=== PATIENT | female | born 1970 | race Caucasian/White ===

== ENCOUNTER 2017-01-05 18:52 | Emergency (ER) | payer OTHER ==
[~2017-01-05] VITALS: Ht 167.6 cm; Wt 127.1 kg
[2017-01-05 19:14] VITALS: BP 145/100; PULSE 94; RESP 24; TEMP 98.4; O2SAT 95
[2017-01-05] MEDS ORDERED: IBUP800T23 PO (19:38)
[2017-01-05] MEDS ORDERED: HYDR-3516 PO (19:38)
--- NOTE | 2017-01-05 19:44 | PD ---
HPI Chief Complaint: Musculoskeletal Complaint Time Seen by Provider: 19:36 Travel History International Travel<30 days: No Contact w/Intl Traveler<30days: No Traveled to known affect area: No History of Present Illness HPI 46-year-old female presents to the emergency department by private transportation the care of her spouse for evaluation of severe low back pain radiating into the left lower extremity. Patient reports that she has established history of lumbar disc disease with bulging disc and a herniated disc reportedly at L4 5. Patient states she is under the care of pain management doctor and a back doctor in [place] where she is visiting from. Patient states symptoms have exacerbated since last week. Patient was seen in an emergency department on 1 week ago for increased back pain and left lower extremity pain. Patient was evaluated with an ultrasound which was negative for DVT and was informed that her symptoms were related to her lumbar disc disease. Patient was reportedly also seen by her pain management provider on and received an injection and she reports that the pain management doctor assured her symptoms over the 72 hours. Patient states her symptoms were not improved in 72 hours and that her pain management doctor like her. Patient did not contact her pain management doctor to inform the physician that her symptoms were persistent. Patient did have her contact her back doctor who told her that he would see her in follow-up this upcoming Sunday. The patient decided to travel from [place] to [place] in the interim and has noticed increasing pain in her back. Patient denies any bladder or bowel dysfunction. Patient denies any lower extremity weakness or new numbness has had numbness in her toes. Patient states that she has been prescribed hydrocodone but has provided no symptom relief and has been taking ibuprofen 802 1000 mg as often as every 3 hours. Patient's past history is significant for lumbar disc disease , varicosities, gastric bypass, appendectomy, and clinical obesity. Patient does not report any fever chills cough congestion chest pain shortness of breath pleuritic chest pain vomiting diarrhea dysuria frequency urgency urinary retention bladder or bowel dysfunction or bowel incontinence. No report of saddle anesthesia. Patient also reports that 1 week ago she also had a fall but did not report this to the emergency department at that time and also has noticed a bruise where she's been squeezing her lower abdomen very hard with her hand because of her related pain. [facility] Past Medical History Narrative Medical Lumbar disc disease clinical obesity varicose veins gastric bypass appendectomy ; nursing notes reviewed ?: Not Social History Tobacco Use: No Allergies-Medications (Allergen,Severity, Reaction): Coded Allergies: Penicillins (Verified Allergy, Unknown, 01/05/17) Reported Meds & Prescriptions Reported Meds & Active Scripts Active Medrol Dosepak (Methylprednisolone) 4 Mg Dspk 4 Mg PO DIRECTED Per Pharmacist direction Robaxin (Methocarbamol) 750 Mg Tab 750 Mg PO Q6HR Reported Hydrocodone-Acetaminophen 5-325 mg Tab 1 Tab PO Q4H PRN Ibuprofen 800 Mg Tab 800 Mg PO Q6HR PRN Narrative Medication Ibuprofen hydrocodone Review of Systems Except as stated in HPI: all other systems reviewed are Neg General / Constitutional: No: Fever, Chills HENT: No: Congestion Cardiovascular: No: Chest Pain or Discomfort Respiratory: No: Shortness of Breath Gastrointestinal: Positive: Nausea, Abdominal Pain Genitourinary: No: Dysuria Musculoskeletal: Positive: Pain (back and LLE) Skin: No Rash Neurologic: No: Weakness, Paresthesia Psychiatric: No: Anxiety Endocrine: No: Heat Intolerance, Cold Intolerance Hematologic/Lymphatic: No: Easy Bruising Physical Exam Narrative GENERAL: Well-developed well-nourished clinically obese female crying and no respiratory distress; GCS 15; T: 98.4; HR;: 94; RR:24; BP: 145/100; RA O2sat: 95 % SKIN: Warm and dry. Various aged ecchymoses over the abdominal wall LLQ round, subacute, proximal lateral left lower extremity acute to subacute, scattered, and lateral proximal L lower lateral leg subacute, round. HEAD: Normocephalic. EYES: No scleral icterus. No injection or drainage. NECK: Supple, trachea midline. No JVD or lymphadenopathy. CARDIOVASCULAR: Regular rate and rhythm without murmurs, gallops, or rubs. RESPIRATORY: Breath sounds equal bilaterally. No accessory muscle use. GASTROINTESTINAL: Abdomen soft, non-tender, nondistended. MUSCULOSKELETAL: No cyanosis, or edema. BACK: Tender to palpation along the lower lumbar spine causing the patient to jerk forward repetitively each time I approach touching the lower back area without obvious deformity. No cervical or thoracic spine tenderness. Negative right lower extremity SLR, patient will not attempt left lower extremity straight-leg raising. Sensory exam grossly intact. No CVA tenderness. Data Data Last Documented VS Vital Signs Date Time Temp Pulse Resp B/P (MAP) Pulse Ox O2 Delivery O2 Flow Rate FiO2 01/05/17 21:44 60 16 126/61 (82) 97 01/05/17 20:20 98.8 Room Air Orders Orders Complete Blood Count With Diff (01/05/17 19:34) Comprehensive Metabolic Panel (01/05/17 19:34) Lipase (01/05/17 19:34) Urinalysis - C+S If Indicated (01/05/17 19:34) Iv Access Insert/Monitor (01/05/17 19:34) Ecg Monitoring (01/05/17 19:34) Oximetry (01/05/17 19:34) Ondansetron Inj (Zofran Inj) (01/05/17 19:45) Sodium Chloride 0.9% Flush (Ns Flush) (01/05/17 19:45) Hydromorphone Pf Inj (Dilaudid Pf Inj) (01/05/17 19:45) Ketorolac Inj (Toradol Inj) (01/05/17 21:30) Dexamethasone Inj (Decadron Inj) (01/05/17 21:30) Ed Urine Pregnancytest Poc (01/05/17 21:34) Ed Discharge Order (01/05/17 21:46) Labs Laboratory Tests Test 01/05/17 19:47 01/05/17 21:00 White Blood Count 6.6 TH/MM3 Red Blood Count 4.81 MIL/MM3 Hemoglobin 12.7 GM/DL Hematocrit 38.6 % Mean Corpuscular Volume 80.2 FL Mean Corpuscular Hemoglobin 26.3 PG Mean Corpuscular Hemoglobin Concent 32.8 % Red Cell Distribution Width 14.4 % Platelet Count 236 TH/MM3 Mean Platelet Volume 8.5 FL Neutrophils (%) (Auto) 55.2 % Lymphocytes (%) (Auto) 29.0 % Monocytes (%) (Auto) 11.7 % Eosinophils (%) (Auto) 3.2 % Basophils (%) (Auto) 0.9 % Neutrophils # (Auto) 3.6 TH/MM3 Lymphocytes # (Auto) 1.9 TH/MM3 Monocytes # (Auto) 0.8 TH/MM3 Eosinophils # (Auto) 0.2 TH/MM3 Basophils # (Auto) 0.1 TH/MM3 CBC Comment DIFF FINAL Differential Comment Blood Urea Nitrogen 12 MG/DL Creatinine 0.82 MG/DL Random Glucose 100 MG/DL Total Protein 7.4 GM/DL Albumin 3.7 GM/DL Calcium Level 8.9 MG/DL Alkaline Phosphatase 71 U/L Aspartate Amino Transf (AST/SGOT) 15 U/L Alanine Aminotransferase (ALT/SGPT) 19 U/L Total Bilirubin 0.3 MG/DL Sodium Level 143 MEQ/L Potassium Level 3.9 MEQ/L Chloride Level 110 MEQ/L Carbon Dioxide Level 25.9 MEQ/L Anion Gap 7 MEQ/L Estimat Glomerular Filtration Rate 75 ML/MIN Lipase 112 U/L Urine Collection Type VOIDED Urine Color YELLOW Urine Turbidity CLEAR Urine pH 5.5 Urine Specific [place] 1.015 Urine Protein NEG mg/dL Urine Glucose (UA) NEG mg/dL Urine Ketones TRACE mg/dL Urine Occult Blood NEG Urine Nitrite NEG Urine Bilirubin NEG Urine Leukocyte Esterase NEG Urine WBC 3-5 /hpf Urine Squamous Epithelial Cells 0-3 /hpf Urine Transitional Epithelial Cells 0-2 /hpf Urine White Blood Cell Casts 0-2 /lpf Urine Mucus FEW /lpf Microscopic Urinalysis Comment CULT NOT INDICATED MDM Medical Decision Making Medical Screen Exam Complete: Yes Emergency Medical Condition: Yes Medical Record Reviewed: Yes Interpretation(s) CBC & BMP Diagram 01/05/17 19:47 Total Protein 7.4, Albumin 3.7, Calcium Level 8.9, Alkaline Phosphatase 71, Aspartate Amino Transf (AST/SGOT) 15, Alanine Aminotransferase (ALT/SGPT) 19, Total Bilirubin 0.3 Vital Signs Date Time Temp Pulse Resp B/P (MAP) Pulse Ox O2 Delivery O2 Flow Rate FiO2 01/05/17 20:20 98.8 60 18 126/62 (83) 97 Room Air 01/05/17 20:20 18 01/05/17 20:00 60 18 129/66 (87) 97 Room Air 01/05/17 19:58 95 Room Air 01/05/17 19:14 98.4 94 24 145/100 (115) 95 UA: wnl Differential Diagnosis Exacerbation chronic back pain, HNP, cauda equina, abdominal pain, colitis, diverticulitis, abdominal wall contusion, UTI, renal colic Narrative Course Patient placed on exam stretcher IV access obtained specimens collected and sent for resulting and administer one dose of Zofran 4 mg IV and Dilaudid 1 mg IV for pain management. It's 9:25 PM lab values and found to be in normal range pain has decreased from 10 over 10 in intensity 5/10 intensity but patient still cries when she is ambulatory therefore administered 1 dose of Toradol 30 mg IV and 1 dose of Decadron 8 mg IV. Patient is stable for outpatient management; patient is prescribed Medrol Dosepak and Robaxin muscle relaxant. Patient is encouraged to follow-up with her primary care provider and pain management provider Diagnosis Primary Impression: Acute exacerbation of chronic low back pain Referrals: Pain Management call for appointment Primary Care Physician call for appointment Patient Instructions: Narcotic given in the ED, General Instructions Additional Instructions: Increase fluid hydration Apply moist heat to low back for comfort Take steroid as prescribed Take muscle relaxants as prescribed as needed Avoid use of nonsteroidal anti-inflammatory ibuprofen while completing steroid taper Follow-up with your pain management doctor and your primary care call office to schedule follow-up appointment Return to the emergency department for any concerns or change in condition Med/Other Pt SpecificInfo: Prescription(s) given Scripts Methylprednisolone Dosepak (Medrol Dosepak) 4 Mg Dspk 4 MG PO DIRECTED, #1 DSPK 0 Refills Per Pharmacist direction Prov: Carolina Spears MD 01/05/17 Methocarbamol (Robaxin) 750 Mg Tab 750 MG PO Q6HR for Muscle Spasm, #7 TAB 0 Refills Prov: Carolina Spears MD 01/05/17 Disposition: 01 DISCHARGE HOME Condition: Stable Carolina Spears MD Jan 05, 2017 19:44
[2017-01-05] MEDS ORDERED: HYDROmorphone HCL PF 1 MG/ML VIAL IV PUSH ONE (19:45)
[2017-01-05] MEDS ORDERED: SODIUM CHLORIDE 0.9% FLUSH 10 ML FLUSH IV FLUSH PRN (19:45)
[2017-01-05] MEDS ORDERED: ONDANSETRON HCL 4 MG/2 ML VIAL IVP ONE (19:45)
[2017-01-05 19:53] LABS: AUTOMATED NEUTROPHIL # 3.6 TH/MM3 (1.8-7.7); BASOPHIL # 0.1 TH/MM3 (0-0.2); BASOPHIL % 0.9 % (0.0-2.0); EOSINOPHIL # 0.2 TH/MM3 (0-0.4); EOSINOPHIL % 3.2 % (0.0-4.0); HEMATOCRIT 38.6 % (35.0-46.0); HEMOGLOBIN 12.7 GM/DL (11.6-15.3); LYMPHOCYTE # 1.9 TH/MM3 (1.0-4.8); MEAN CELL VOLUME 80.2 FL (80.0-100.0); MEAN CORPUSCULAR HEMOGLOBIN 26.3 PG (27.0-34.0); MEAN CORPUSCULAR HGB CONC 32.8 % (32.0-36.0); MEAN PLATELET VOLUME 8.5 FL (7.0-11.0); MONO % 11.7 % (0.0-8.0); MONOCYTE # 0.8 TH/MM3 (0-0.9); NEUT % 55.2 % (16.0-70.0); PLATELET COUNT 236 TH/MM3 (150-450); RED BLOOD COUNT 4.81 MIL/MM3 (4.00-5.30); RED CELL DISTRIBUTION WIDTH 14.4 % (11.6-17.2); WHITE BLOOD COUNT 6.6 TH/MM3 (4.0-11.0)
[2017-01-05 19:58] VITALS: O2SAT 95
[2017-01-05 20:00] VITALS: BP 129/66; PULSE 60; RESP 18; O2SAT 97
[2017-01-05 20:03] LABS: CHLORIDE 110 MEQ/L (98-107); SODIUM (NA) 143 MEQ/L (136-145)
[2017-01-05 20:06] LABS: CALCIUM 8.9 MG/DL (8.5-10.1)
[2017-01-05 20:07] LABS: ALBUMIN 3.7 GM/DL (3.4-5.0); BICARBONATE 25.9 MEQ/L (21.0-32.0); BLOOD UREA NITROGEN 12 MG/DL (7-18); GLUCOSE,RANDOM 100 MG/DL (74-106); LIPASE 112 U/L (73-393)
[2017-01-05 20:10] LABS: ALT (GPT) 19 U/L (10-53); AST (GOT) 15 U/L (15-37); CREATININE 0.82 MG/DL (0.50-1.00); GLOMERULAR FILTRATION RATE 75 ML/MIN (>89)
[2017-01-05 20:11] LABS: TOTAL BILIRUBIN ADULT 0.3 MG/DL (0.2-1.0); TOTAL PROTEIN 7.4 GM/DL (6.4-8.2)
[2017-01-05 20:13] LABS: ALKALINE PHOSPHATASE 71 U/L (45-117)
[2017-01-05 20:20] VITALS: BP 126/62; PULSE 60; RESP 18; TEMP 98.8; O2SAT 97
[2017-01-05 21:07] LABS: BILIRUBIN, URINE NEG (NEG); BLOOD, URINE NEG (NEG); GLUCOSE,URINE NEG (NEG); KETONE, URINE TRACE mg/dL (NEG); NITRITE,URINE NEG (NEG); PH, URINE 5.5 (5.0-8.5); URINE LEUKOCYTE ESTERASE NEG (NEG)
[2017-01-05 21:11] LABS: URINE COLOR YELLOW (YELLW/STRAW)
[2017-01-05 21:15] LABS: MUCUS URINE FEW /lpf (OCC); SQUAMOUS EPITHELIAL CELL URINE 0-3 /hpf (0-5); WHITE BLOOD CELL CAST, URINE 0-2 /lpf
[2017-01-05 21:16] LABS: TRANSITIONAL EPI CELLS, URINE 0-2 /hpf
[2017-01-05] MEDS ORDERED: MEDR4PAK PO ×3 (21:23→21:42)
[2017-01-05] MEDS ORDERED: ROBA750T PO ×2 (21:23→21:41)
[2017-01-05] MEDS ORDERED: KETOROLAC TROMETHAMINE 30 MG/ML (IVP) VIAL IV PUSH ONE (21:30)
[2017-01-05] MEDS ORDERED: DEXAMETHASONE SOD PHOS 4 MG/ML VIAL IV PUSH ONE (21:30)
[2017-01-05 21:44] VITALS: BP 126/61
== END 2017-01-05 21:59 | disposition home or self-care (01) ==
LOC: PHED 18:52
DX: M54.5 Low back pain (principal); G89.29 Other chronic pain; E66.9 Obesity, unspecified; Z88.0 Allergy status to penicillin; Z98.84 Bariatric surgery status
CPT/HCPCS: 80053; 81001; 83690; 84703; 85025; 96374; 96375; 99284; J1100; J1170; J1885; J2405